=== PATIENT | male | born 1985 | race Caucasian/White ===

== ENCOUNTER → 2017-08-18 | Outpatient (CLI) | payer OTHER ==
--- NOTE | 2017-08-19 07:18 | REP ---
Clinical: Pain with recent trauma to the acromioclavicular joint . Technique: Internal rotation, external rotation, and Y view left shoulder . Findings: No acute fracture or dislocation. The acromioclavicular and glenohumeral joints are intact. No periarticular calcifications or degenerative changes are appreciated. Sub acromial space is normal. Surrounding soft tissues are unremarkable. Impression: Normal , age-appropriate left heart shoulder radiographs. Signed by Ronald Ramírez MD 08/19/2017 07:10 A
== END ==
LOC: M ADAMS 14:01
PROVIDERS: ATTEND Physician Assistant Medical
DX: M25.512 Pain in left shoulder (principal)

== ENCOUNTER → 2019-07-19 | Outpatient (REF) | payer OTHER ==
[2019-07-19 13:19] LABS: HEMATOCRIT 44.6 % (42.0-52.0); HEMOGLOBIN 14.7 g/dl (13.5-17.5); MEAN CORPUSCULAR HEMOGLOBIN 28.9 pg (27.0-33.0); MEAN CORPUSCULAR VOLUME 87.6 fl (80.0-96.0); PLATELET COUNT, AUTOMATED 288 10^3/uL (150-450); RED BLOOD COUNT 5.09 10^6/uL (4.30-6.10); WHITE BLOOD COUNT 7.6 10^3/uL (4.0-10.0)
[2019-07-19 13:58] LABS: ALBUMIN 4.4 GM/DL (3.2-5.2); ALT/SGPT 26 U/L (12-78); BILIRUBIN,TOTAL 0.5 MG/DL (0.2-1.0); BLOOD UREA NITROGEN 13 MG/DL (7-18); CALCIUM LEVEL 9.2 MG/DL (8.5-10.1); CARBON DIOXIDE LEVEL 31 MEQ/L (21-32); CHLORIDE LEVEL 103 MEQ/L (98-107); CREATININE FOR GFR 0.97 MG/DL (0.70-1.30); FREE T4 0.96 NG/DL (0.76-1.46); GLOMERULAR FILTRATION RATE > 60.0 (>60); GLUCOSE, FASTING 78 MG/DL (70-100); POTASSIUM SERUM 4.2 MEQ/L (3.5-5.1); SODIUM LEVEL 136 MEQ/L (136-145); TOTAL PROTEIN 7.6 GM/DL (6.4-8.2)
[2019-07-21 00:06] LABS: Lyme Disease IgG/IgM Antibodie <0.91 ISR (0.00-0.90); Lyme Disease IgM Ab Quantitati <0.80 index (0.00-0.79)
== END ==
LOC: M SFHCADAM 11:10
PROVIDERS: ATTEND Physician Assistant
DX: F17.220 Nicotine dependence, chewing tobacco, uncomplicated (principal); F41.9 Anxiety disorder, unspecified; W57.XXXD Bitten or stung by nonvenomous insect and other nonvenomous arthropods, subsequent encounter

== ENCOUNTER → 2019-08-07 | Outpatient (CLI) | payer OTHER ==
[~2019-08-07] MED LIST: TOPI50TA9 PO
--- NOTE | 2019-08-08 05:37 | REP ---
Clinical: Testicular pain. Technique: Sesay scale and color Doppler evaluation using linear and curved array transducer with color Doppler evaluation. Findings: The testicles and epididymi are relatively normal in contour, size, echogenicity, vascularity and overall appearance. There is no evidence for intratesticular mass lesion, infectious/inflammatory process, with torsion. Incidental right epididymal head cyst measures 7 x 3 x 3 mm and left epididymal head cyst measures 2 x 2 x 1 mm. Few incidental testicular calcifications measure up to approximately 1.4 mm. Right-sided varicoceles measure up to 4.4 mm maximal diameter on Valsalva. No obvious hydrocele. Right testicle measures 5.0 x 1.9 x 3.0 cm. Left testicle measures 5.1 x 1.9 x 3.0 cm. Impression: 1. Early right-sided hydroceles measuring up to 4.4 mm maximal diameter on Valsalva. 2. Otherwise relatively normal examination with few essentially insignificant findings.
== END ==
LOC: M WHC 07:59
PROVIDERS: ATTEND Physician Assistant
DX: N43.3 Hydrocele, unspecified (principal)

== ENCOUNTER → 2019-09-21 | Outpatient (REF) | payer OTHER | LOC: M SFHCADAM 08:52 | PROVIDERS: ATTEND Physician Assistant | DX: Z53.9 Procedure and treatment not carried out, unspecified reason (principal) ==

== ENCOUNTER → 2019-10-11 | Outpatient (CLI) | payer OTHER ==
--- NOTE | 2019-10-11 14:38 | REP ---
ULTRASOUND INGUINAL CANALS: Real-time sonographic evaluation of the inguinal canals is performed at rest and with Valsalva maneuver. There is no evidence of right inguinal hernia. There is a normal appearing 1 cm lymph node along the right iliac vessels. There does appear to be a very small left inguinal hernia which contains mesenteric fat which is reducible. The left inguinal hernia only extends through the internal ring with the defect approximately 5 mm in diameter increasing to about 9 mm with Valsalva maneuver. There is no bowel in the hernia. IMPRESSION: Small reducible left inguinal hernia containing only a small amount of mesenteric fat. Electronically Signed by Marc Sesay MD 10/12/2019 11:23 A
== END ==
LOC: M RAD 12:54
PROVIDERS: ATTEND Surgery
DX: K40.90 Unilateral inguinal hernia, without obstruction or gangrene, not specified as recurrent (principal)

== ENCOUNTER 2019-12-04 09:48 | Day surgery (SDC) | payer OTHER ==
[~2019-12-04] VITALS: Ht 175.3 cm; Wt 86.3 kg
[~2019-12-04 09:48] MED LIST changes: +CLINDAMYCIN 600 MG in IV 1 EA IV ONE; +LR 1,000 ML IV ONE; +MIDAZOLAM INJ 2 MG/2 ML VIAL (J2250) As Ordered ONE; +fentaNYL 250 MCG/5 ML INJECTION (J3010) As Ordered ONE; +propofoL 500 MG/50 ML VIAL As Ordered ONE
[2019-12-04] MEDS ORDERED: BUPIVACAINE/EPIN 0.25% 30 ML VIAL As Ordered ONE (10:47)
[2019-12-04] MEDS ORDERED: KETOROLAC 60 MG/2 ML VIAL (J1885) As Ordered ONE (11:24)
[2019-12-04] MEDS ORDERED: ACETAMINOPHEN 1000MG 100ML IV BTL (OFIRMEV) (J0131 PER 10MG) As Ordered ONE (11:24)
[2019-12-04] MEDS ORDERED: SUGAMMADEX SODIUM 500 MG/5 ML VIAL (BRIDION) As Ordered ONE (11:25)
[2019-12-04] MEDS ORDERED: dexameTHASONE 4 MG/ML 1ML VIAL (J1100) As Ordered ONE (11:25)
[2019-12-04] MEDS ORDERED: ROCURONIUM BROMIDE 50 MG/5 ML VIAL As Ordered ONE (11:25)
[2019-12-04] MEDS ORDERED: LIDOCAINE 2% INJ 100 MG/5 ML SDV (FOR ANES.) As Ordered ONE (11:25)
[2019-12-04] MEDS ORDERED: ONDANSETRON 4MG/2ML VIAL (J2405) As Ordered ONE (11:25)
[2019-12-04] MEDS ORDERED: propofoL 200 MG/20 ML VIAL As Ordered ONE (11:25)
[2019-12-04] MEDS ORDERED: METHOCARBAMOL 1,000 MG/10 ML VIAL (J2800) As Ordered ONE (11:26)
[2019-12-04] MEDS: oxyCODONE 5MG TAB PO PRN ×2 (12:44→13:19)
[2019-12-04] MEDS ORDERED: ONDANSETRON 4MG/2ML VIAL (J2405) IV PRN (12:45)
[2019-12-04] MEDS ORDERED: fentaNYL 100 MCG/2 ML INJECTION (J3010) IV PRN (12:45)
[2019-12-04] MEDS ORDERED: HYDROMORPHONE HCL 0.5 MG/ 0.5 ML SYRINGE (J1170 PER 1) IV PRN (12:45)
[2019-12-04] MEDS ORDERED: LR 1,000 ML IV SCH (12:45)
[2019-12-04] MEDS ORDERED: NORCO, ANEXSIA 5/325MG TABLET (HYDROcodone/ACETAMINOPHEN) PO PRN (12:45)
[2019-12-04 13:55] VITALS: BP 121/57
--- NOTE | 2019-12-05 08:12 | RO ---
DATE OF PROCEDURE: 12/04/2018 PREOPERATIVE DIAGNOSIS: Bilateral inguinal hernias. POSTOPERATIVE DIAGNOSIS: Bilateral inguinal hernias. PROCEDURES: Robotic repair of bilateral inguinal hernias. SURGEON: Marc Leach DO POULTRY HUSBANDRY WORKER: MELLISSA Henderson ANESTHESIA: General. ESTIMATED BLOOD LOSS: 5 mL. COMPLICATIONS: None. INDICATIONS FOR PROCEDURE: The patient is a 34-year-old male who presents with right groin pain and an ultrasound showing a left inguinal hernia. Repeat ultrasound again showed left inguinal hernia. No signs of hernia on the right however, I felt a palpable hernia in the right as well as one my partners. Because of that, plan was to proceed with robotic bilateral inguinal hernia repair. Risks and benefits of procedure, not limited to but including bleeding, infection, hernia formation, hernia recurrence, damage to surrounding structures, need for further surgery were discussed in detail with the patient, informed consent was obtained and the procedure was planned. PROCEDURE: The patient was brought back to operating room 7. After sufficient sedation, the abdomen was sterilely prepped and draped. Next, a time out was done to confirm proper patient and proper procedure. Following that, an 8 mm incision was made in left lower quadrant, Veress needle inserted and the abdomen was insufflated to 15 mmHg. Veress needle was then removed and an 8 mm robotic OptiView port was used to gain access to the abdomen. She had was entered two more robotic ports were placed across the mid abdomen. Next, the abdomen was examined through the robotic console. Starting on the right side, the preperitoneal was entered with a curved incision just above the inguinal canal. Preperitoneal space was dissected free posteriorly and medially all way to the pubic symphysis. There was no obvious protrusion of the peritoneum into the inguinal canal. No hernia sac, but there was a cord lipoma extending from the preperitoneal space down through the inguinal ring. This was dissected free and completely removed. The same process was done on the left side. On the left there also was a cord lipoma and also medial to the cords was a couple of large, what appeared to be swollen, either incarcerated fat versus enlarged lymph nodes. These were dissected free from the inguinal vein and removed. Next, a Bard 3DMax light medium mesh was placed, first into the left preperitoneal space sutured to the pubic symphysis with #2-0 Vicryl suture. The peritoneum was then closed over top of the mesh using a running 32-0 V-Loc of consciousness. The same process was done on the right. Once that was completed, the specimens were placed inside of a 5 mm EndoCatch bag and removed. Once they are removed, all of the needles were removed. The abdomen was then desufflated. Skin incisions were closed #4-0 Vicryl subcuticular sutures. The eye was cleaned and dried, and Steri-Strips, 4x4 and tape were applied thus ending procedure.
== END 2019-12-04 14:00 | disposition home or self-care (01) ==
LOC: M SDC 09:48
PROVIDERS: ATTEND Surgery
DX: K40.20 Bilateral inguinal hernia, without obstruction or gangrene, not specified as recurrent (principal); D17.6 Benign lipomatous neoplasm of spermatic cord; F17.220 Nicotine dependence, chewing tobacco, uncomplicated; Z79.899 Other long term (current) drug therapy; Z88.0 Allergy status to penicillin; Z88.2 Allergy status to sulfonamides
CPT/HCPCS: 49650; 88302; C1781; J0131; J1100; J1885; J2250; J2405; J2800; J3010

== ENCOUNTER 2020-05-14 12:44 | Observation (INO) | payer OTHER ==
[~2020-05-14] VITALS: Ht 175.3 cm; Wt 89.6 kg
[~2020-05-14 12:44] MED LIST changes: -CLINDAMYCIN 600 MG in IV 1 EA IV ONE; -LR 1,000 ML IV ONE; -MIDAZOLAM INJ 2 MG/2 ML VIAL (J2250) As Ordered ONE; -fentaNYL 250 MCG/5 ML INJECTION (J3010) As Ordered ONE; -propofoL 500 MG/50 ML VIAL As Ordered ONE
--- NOTE | 2020-05-14 13:16 | REP ---
Head CT without contrast: History: Left sided facial droop. Comparison study: No comparison CT study. CT findings: Bone window settings demonstrate an intact bony calvarium. There is no evidence of skull fracture or incidental bony calvarial lesion. The visualized paranasal sinuses appear clear. No intraorbital abnormality is seen. On soft tissue window setting images; the lateral, third, and fourth ventricles are normal in size and position. Sesay-white differentiation pattern is normal above and below the tentorium. There are is no evidence of intracranial hemorrhage. No mass, edema, infarction, or midline shift is seen. No extra-axial fluid collection is appreciated. Impression: Negative noncontrast head CT. Electronically Signed by Trav Roldan MD 05/14/2020 01:15 P
[2020-05-14] MEDS ORDERED: ASPIRIN 81 MG CHEW TABLET PO ONE (13:30)
[2020-05-14 13:39] LABS: BASO % 0.5 % (0.0-1.0); EOS % 0.6 % (0.0-3.0); HEMATOCRIT 42.2 % (42.0-52.0); HEMOGLOBIN 14.3 g/dl (13.5-17.5); LYMPH # 1.6 10^3/uL (1.5-5.0); LYMPH % 24.6 % (24.0-44.0); MEAN CORPUSCULAR HEMOGLOBIN 29.5 pg (27.0-33.0); MEAN CORPUSCULAR HGB CONC 33.9 g/dl (32.0-36.5); MEAN CORPUSCULAR VOLUME 87.2 fl (80.0-96.0); MONO # 0.5 10^3/uL (0.0-0.8); MONO % 8.2 % (0.0-5.0); NEUTROPHILS # 4.2 10^3/uL (1.5-8.5); NEUTROPHILS % 65.8 % (36.0-66.0); PLATELET COUNT, AUTOMATED 262 10^3/uL (150-450); RED BLOOD COUNT 4.84 10^6/uL (4.30-6.10); WHITE BLOOD COUNT 6.4 10^3/uL (4.0-10.0)
[2020-05-14] MEDS ORDERED: ISOVUE-370 76% 100ML VIAL As Ordered ONE (13:39)
[2020-05-14 13:53] LABS: INR 0.99; PROTHROMBIN TIME 12.8 SECONDS (11.8-14.0)
[2020-05-14 13:54] LABS: PARTIAL THROMBOPLASTIN TIME 28.4 SECONDS (25.0-38.4)
[2020-05-14 14:07] LABS: CK-MB VALUE MASS 2.6 NG/ML (<3.6); CPK CREATINE PHOSPHOKINASE 540 U/L (39-308); MB/CK RELATIVE INDEX 0.48 (< OR =4); TROPONIN I < 0.02 NG/ML (< 0.10)
--- NOTE | 2020-05-14 14:25 | REP ---
CT angiography of the brain with IV contrast: History: TIA. CT contrast dose: 100 ml of intravenous Isovue 370. CT angiographic findings: The distal vertebral arteries are symmetric in size and patent. Posterior cerebral and superior cerebellar arteries are normal in appearance. The distal internal carotid arteries are unremarkable bilaterally. Anterior and middle cerebral arteries are intact. No vessel cutoff is seen. The dural sinuses are unremarkable. Maximal intensity projection and MPR images show no additional abnormality. Impression: Unremarkable CT angiography of the brain with IV contrast. Electronically Signed by Trav Roldan MD 05/14/2020 02:17 P
[2020-05-14 14:28] LABS: ALBUMIN 4.4 GM/DL (3.2-5.2); ALT/SGPT 26 U/L (12-78); BILIRUBIN,DIRECT 0.2 MG/DL (0.0-0.2); BILIRUBIN,TOTAL 0.4 MG/DL (0.2-1.0); TOTAL PROTEIN 7.7 GM/DL (6.4-8.2)
--- NOTE | 2020-05-14 15:45 | REP ---
CHEST SINGLE VIEW: There is no evidence of acute infiltrate. No pleural effusion is seen. The heart is normal in size. The mediastinal silhouette is unremarkable. The visualized osseous structures are intact. IMPRESSION: No acute pulmonary disease. Electronically Signed by Marc Sesay MD 05/15/2020 04:39 P
--- NOTE | 2020-05-14 16:10 | REP ---
CT ANGIOGRAPHY OF THE CAROTIDS WITH IV CONTRAST: HISTORY: TIA. CT CONTRAST DOSE: 100 mL of intravenous Isovue 370. TECHNIQUE: Helical scanning is acquired. Axial 2 mm slices are reformatted. Coronal and sagittal MPR and MIP images are generated. Surface rendered 3D images are generated and reviewed. CT ANGIOGRAPHIC FINDINGS: The visualized aortic arch is unremarkable. Great vessel origins are widely patent. The right internal jugular vein is larger than the left and is partially reflux with opacified contrast from the right arm injection. Thyroid lobes are normal and symmetric. No evidence of neck mass or adenopathy is seen. Visualized paranasal sinuses are clear. The vertebral arteries are symmetric and codominant. Common carotid arteries are smooth and widely patent. The carotid bifurcations are clear bilaterally. There is no evidence to suggest dissection or atherosclerosis in the internal carotid arteries on either side. IMPRESSION: Normal CT angiography of the carotids and vertebrals. Electronically Signed by Trav Roldan MD 05/14/2020 05:16 P
--- NOTE | 2020-05-14 17:33 | HPEPDOC ---
[facility] Medical History & Physical Date of Admission May 14, 2020 Date of Service: May 14, 2020 Attending Physician: ALY DAWSON MD History and Physical CHIEF COMPLAINT: Left facial numbness HISTORY OF PRESENT ILLNESS: 35-year-old male with no significant past medical history presents with left facial numbness. It happened earlier today, lasted for a few seconds, recurred 10 minutes later and once again resolved on its own within a few seconds. He had no other symptoms, denies any visual changes, facial weakness and weakness/numbness in the extremities. Patient is currently resting comfortably, without any complaints at this time. He was rebecca for the entire day prior to his symptoms, was in the sun, reports drinking some water, but not an excessive amount. 10 point review of system is negative except for above PAST MEDICAL HISTORY: 1. None. PAST SURGICAL HISTORY: 1. Hernia repair. 2. Left shoulder surgery. SOCIAL HISTORY: Smokes one pack per day. Drinks a few beers every day, up to 12-18 on the weekends. Denies drug use FAMILY HISTORY: 2 uncles had stroke in their 40s ALLERGIES: Please see below. HOME MEDICATIONS: Please see below. PHYSICAL EXAMINATION: VITAL SIGNS: Please see below. GENERAL: No distress HEENT: Normocephalic, atraumatic, moist mucous membranes NECK: Supple CARDIOVASCULAR EXAMINATION: S1, S2, no murmurs RESPIRATORY EXAMINATION: Clear to auscultation, no wheezing ABDOMINAL EXAMINATION: Soft, nontender, nondistended, positive bowel sounds EXTREMITIES: Range of motion intact SKIN: No rash NEUROLOGICAL EXAMINATION: Alert and oriented 3, no focal deficits PSYCHIATRIC EXAMINATION: Calm and cooperative LABORATORY DATA: See below. IMAGING: CT head, CTA head and neck negative for acute pathology MICROBIOLOGY: Please see below. ASSESSMENT: 35-year-old smoker with no significant past medical history is being admitted for possible TIA. PLAN: 1. Left facial numbness. Lasting for a few seconds, spent most of the day outside in the heat, likely heatstroke, CT head and CTA head and neck negative for acute pathology, neurology was consulted by emergency department, who recommended admission for observation and completing stroke workup. Patient was also given aspirin 325 mg. MRI brain and echo pending, telemetry monitoring. Vital Signs Vital Signs Date Time Temp Pulse Resp B/P (MAP) Pulse Ox O2 Delivery O2 Flow Rate FiO2 05/14/20 14:15 68 20 136/77 (96) 97 Room Air 05/14/20 12:45 98.5 Laboratory Data Labs 24H Laboratory Tests 2 05/14/20 13:15: Prothrombin Time 12.8, Prothromb Time International Ratio 0.99, Activated Partial Thromboplast Time 28.4, Total Bilirubin 0.4, Direct Bilirubin 0.2, Aspartate Amino Transf (AST/SGOT) 25, Alanine Aminotransferase (ALT/SGPT) 26, Alkaline Phosphatase 83, Total Creatine Kinase 540H, Creatine Kinase MB 2.6, Creatine Kinase MB Relative Index 0.48, Troponin I < 0.02, Total Protein 7.7, Albumin 4.4, Albumin/Globulin Ratio 1.3 05/14/20 13:16: Immature Granulocyte % (Auto) 0.3, Neutrophils (%) (Auto) 65.8, Lymphocytes (%) (Auto) 24.6, Monocytes (%) (Auto) 8.2H, Eosinophils (%) (Auto) 0.6, Basophils (%) (Auto) 0.5, Neutrophils # (Auto) 4.2, Lymphocytes # (Auto) 1.6, Monocytes # (Auto) 0.5, Eosinophils # (Auto) 0.0, Basophils # (Auto) 0.0, Nucleated Red Blood Cells % (auto) 0.0 05/14/20 13:26: POC Prothrombin Time (Misc) 12.0L, POC INR (Misc) 1.0 05/14/20 13:27: POC Glucose (Misc Panel) 93, POC Sodium (Misc Panel) 138, POC Potassium (Misc Panel) 3.9, POC Chloride (Misc Panel) 101, POC Total CO2 (Misc Panel) 24.0, POC Blood Urea Nitrogen (Misc Panel 13, POC Ionized Calcium (Misc Panel) 4.5, POC Creatinine (Misc Panel) 1.2, POC Hematocrit (Misc Panel) 45.0 CBC/BMP Laboratory Tests 05/14/20 13:16 Home Medications No Active Prescriptions or Reported Meds Allergies Coded Allergies: Penicillins (Verified Allergy, Unknown, UNKNOWN- CHILD, 11/16/19) Sulfa (Sulfonamide Antibiotics) (Verified Allergy, Unknown, UNKNOWN- CHILD, 11/16/19) A-FIB/CHADSVASC A-FIB History Current/History of A-Fib/PAF?: No ALY DAWSON MD May 14, 2020 17:33
[2020-05-14 19:15] VITALS: BP 158/86
--- NOTE | 2020-05-14 19:29 | REPVR ---
PROCEDURE INFORMATION: Exam: MR Head Without Contrast Exam date and time: 05/14/2020 6:07 PM Age: 35 years old Clinical indication: Numbness / parasthesia; Left; Patient HX: Current numbness in lt side of face. PT states earlier today for a short period of time his face went numb, as well as drooping on the lt side, and weakness in the lt side of his body; Additional info: TIA TECHNIQUE: Imaging protocol: MR of the head without contrast. COMPARISON: CT Head without contrast 05/14/2020 12:52 PM FINDINGS: Ventricles demonstrate normal size and configuration. Major vascular flow voids at the skull base are preserved. No extra-axial fluid collection. No midline shift or intracranial mass effect. No pathologic white-matter signal or cerebral edema. No diffusion restriction. Visualized paranasal sinuses and mastoid air cells are clear. IMPRESSION: No acute intracranial abnormality. Electronically signed by: Crescencio Rodriguez On 05/14/2020 19:28:49 PM
[2020-05-15 06:00] VITALS: BP 130/80
[2020-05-15 06:19] LABS: HEMOGLOBIN 14.5 g/dl (13.5-17.5); MEAN CORPUSCULAR HEMOGLOBIN 28.7 pg (27.0-33.0); MEAN CORPUSCULAR VOLUME 87.1 fl (80.0-96.0); PLATELET COUNT, AUTOMATED 256 10^3/uL (150-450); RED BLOOD COUNT 5.05 10^6/uL (4.30-6.10); WHITE BLOOD COUNT 6.2 10^3/uL (4.0-10.0)
[2020-05-15 06:46] LABS: ALBUMIN 3.9 GM/DL (3.2-5.2); ALT/SGPT 26 U/L (12-78); BILIRUBIN,TOTAL 0.5 MG/DL (0.2-1.0); BLOOD UREA NITROGEN 12 MG/DL (7-18); CALCIUM LEVEL 8.8 MG/DL (8.5-10.1); CARBON DIOXIDE LEVEL 27 MEQ/L (21-32); CHLORIDE LEVEL 105 MEQ/L (98-107); CREATININE FOR GFR 1.01 MG/DL (0.70-1.30); GLOMERULAR FILTRATION RATE > 60.0 (>60); GLUCOSE, FASTING 94 MG/DL (70-100); MAGNESIUM LEVEL 2.2 MG/DL (1.8-2.4); POTASSIUM SERUM 4.2 MEQ/L (3.5-5.1); SODIUM LEVEL 136 MEQ/L (136-145); TOTAL PROTEIN 6.9 GM/DL (6.4-8.2)
--- NOTE | 2020-05-15 09:34 | ECGEPIP ---
[facility] - ED Test Date: 2020-05-14 Pat Name: BRISA BROWNE Department: Room: - Gender: Male Analysis Analyst: porfirio : 1985 Requested By: LUIS ALBERTO Montgomery Order Number: [id number] Reading MD: Aleksey Cesar Measurements Intervals [place] Rate: 78 P: 23 [place]: 144 QRS: 46 QRSD: 94 T: 32 QT: 361 QTc: 413 Interpretive Statements SINUS RHYTHM POOR R WAVE PROGRESSION NO PRIORS FOR COMPARISON Electronically Signed on 05-15-2020 9:33:45 EDT by Aleksey Cesar
--- NOTE | 2020-05-15 12:46 | DS.PDOC ---
Discharge Summary General Date of Admission May 14, 2020 at 12:45 Date of Discharge 05/15/2020 Attending Physician: ALY DAWSON MD Discharge Summary PROCEDURES PERFORMED DURING STAY: None. ADMITTING DIAGNOSES: 1. TIA. DISCHARGE DIAGNOSES: 1. TIA. COMPLICATIONS/CHIEF COMPLAINT: TIA. HISTORY OF PRESENT ILLNESS: 35-year-old male with no significant past medical history was admitted for TIA and stroke workup. Patient's CAT scan and MRI have been negative for acute stroke. Patient has remained clinically asymptomatic since admission. Patient seen in the morning, comfortable, without any complaints, hemodynamically stable for discharge and outpatient follow-up. HOSPITAL COURSE: As above. DISCHARGE MEDICATIONS: Please see below. ALLERGIES: Please see below. PHYSICAL EXAMINATION: VITAL SIGNS: Please see below. GENERAL: No distress HEENT: Normocephalic, atraumatic, moist mucous membranes NECK: Supple CARDIOVASCULAR EXAMINATION: S1, S2, no murmurs RESPIRATORY EXAMINATION: Clear to auscultation, no wheezing ABDOMINAL EXAMINATION: Soft, nontender, nondistended, positive bowel sounds EXTREMITIES: Range of motion intact SKIN: No rash NEUROLOGICAL EXAMINATION: Alert and oriented 3, no focal deficits PSYCHIATRIC EXAMINATION: Calm and cooperative LABORATORY DATA: Please see below. IMAGING: CT and MRI head negative for acute stroke PROGNOSIS: Good ACTIVITY: As tolerated. DIET: Regular DISCHARGE PLAN: Follow with PCP in 1-2 weeks DISPOSITION: 01 Home, Self-Care. DISCHARGE INSTRUCTIONS: 1. As above. DISCHARGE CONDITION: Stable. TIME SPENT ON DISCHARGE: Greater than 15 minutes. Vital Signs/I&Os Vital Signs Date Time Temp Pulse Resp B/P (MAP) Pulse Ox O2 Delivery O2 Flow Rate FiO2 05/15/20 06:00 97.8 64 18 130/80 (97) 99 05/14/20 17:15 Room Air I&O- Last 24 Hours up to 6 AM 05/15/20 06:00 Intake Total 900 ml Output Total 750 ml Balance 150 ml Laboratory Data Labs 24H Laboratory Tests 2 05/14/20 13:15: Prothrombin Time 12.8, Prothromb Time International Ratio 0.99, Activated Partial Thromboplast Time 28.4, Total Bilirubin 0.4, Direct Bilirubin 0.2, Aspartate Amino Transf (AST/SGOT) 25, Alanine Aminotransferase (ALT/SGPT) 26, Alkaline Phosphatase 83, Total Creatine Kinase 540H, Creatine Kinase MB 2.6, Creatine Kinase MB Relative Index 0.48, Troponin I < 0.02, Total Protein 7.7, Albumin 4.4, Albumin/Globulin Ratio 1.3 05/14/20 13:16: Immature Granulocyte % (Auto) 0.3, Neutrophils (%) (Auto) 65.8, Lymphocytes (%) (Auto) 24.6, Monocytes (%) (Auto) 8.2H, Eosinophils (%) (Auto) 0.6, Basophils (%) (Auto) 0.5, Neutrophils # (Auto) 4.2, Lymphocytes # (Auto) 1.6, Monocytes # (Auto) 0.5, Eosinophils # (Auto) 0.0, Basophils # (Auto) 0.0, Nucleated Red Blood Cells % (auto) 0.0 05/14/20 13:26: POC Prothrombin Time (Misc) 12.0L, POC INR (Misc) 1.0 05/14/20 13:27: POC Glucose (Misc Panel) 93, POC Sodium (Misc Panel) 138, POC Potassium (Misc Panel) 3.9, POC Chloride (Misc Panel) 101, POC Total CO2 (Misc Panel) 24.0, POC Blood Urea Nitrogen (Misc Panel 13, POC Ionized Calcium (Misc Panel) 4.5, POC Creatinine (Misc Panel) 1.2, POC Hematocrit (Misc Panel) 45.0 05/15/20 06:07: Nucleated Red Blood Cells % (auto) 0.0, Anion Gap 4L, Glomerular Filtration Rate > 60.0, Calcium Level 8.8, Magnesium Level 2.2, Total Bilirubin 0.5, Aspartate Amino Transf (AST/SGOT) 21, Alanine Aminotransferase (ALT/SGPT) 26, Alkaline Phosphatase 71, Total Protein 6.9, Albumin 3.9, Albumin/Globulin Ratio 1.3 CBC/BMP Laboratory Tests 05/14/20 13:16 05/15/20 06:07 Discharge Medications No Active Prescriptions or Reported Meds Allergies Coded Allergies: Penicillins (Verified Allergy, Unknown, UNKNOWN- CHILD, 11/16/19) Sulfa (Sulfonamide Antibiotics) (Verified Allergy, Unknown, UNKNOWN- CHILD, 11/16/19) ALY DAWSON MD May 15, 2020 12:46
--- NOTE | 2020-05-15 17:11 | ECHO ---
DATE OF STUDY: 05/15/2020 REFERRING PHYSICIAN: Dr. Puja Goetz INDICATION: Transient cerebral ischemia, unspecified. HEIGHT: 175 cm WEIGHT: 89 kg 2-D MEASUREMENTS: Left ventricle diastole: 6.0 cm Ventricular septum: 1.11 cm Posterior wall: 1.11 cm Aortic root: 3.6 cm Left atrium: 3.5 cm Aortic annulus: 2.6 cm Inferior vena cava: 2.0 cm DOPPLER MEASUREMENTS: No aortic regurgitation. No aortic stenosis. Aortic valve velocity: 112 cm/sec LVOT velocity: 94.7 cm/sec Trace mitral regurgitation. Mitral E velocity: 61.7 cm/sec Mitral A velocity: 49.7 cm/sec Mitral deceleration time: 250 ms Very mild tricuspid regurgitation. Estimated right ventricular systolic pressure 20-25 mmHg assuming a pressure of 5-10 mmHg. Very mild pulmonic regurgitation. Pulmonary artery systolic pressure: 19 mmHg MITRAL ANNULAR TISSUE DOPPLER E prime septal: 10.7 cm/sec E prime lateral: 14.2 cm/sec DESCRIPTION: The rhythm was sinus. Image quality was adequate. No pericardial effusion. This was a 2-D, M-mode, color flow Doppler and pulsed wave Doppler examination and included mitral annular tissue Doppler. CONCLUSIONS: 1. Mild left ventricle dilatation at end diastole. Left ventricle appeared normal in size and systole by visual assessment. Normal regional LV wall motion and wall thickening. Normal LV wall thickness . Normal LV systolic function. Left ventricular ejection fraction (LVEF) 60% by visual estimate. Normal LV diastolic function. 2. Otherwise, normal echocardiogram-Doppler findings.
== END 2020-05-15 12:05 | disposition home or self-care (01) ==
LOC: M ED 12:44 → M ED INP 12:45 → ENRESERV 18:13 → M MSPAV 19:21
PROVIDERS: ADMIT Internal Medicine; ATTEND Internal Medicine
DX: G45.9 Transient cerebral ischemic attack, unspecified (principal); F17.218 Nicotine dependence, cigarettes, with other nicotine-induced disorders; F41.9 Anxiety disorder, unspecified; Z88.0 Allergy status to penicillin; Z88.2 Allergy status to sulfonamides
CPT/HCPCS: 36415; 70450; 70496; 70498; 70551; 71045; 80047; 80053; 80076; 82550; 82553; 83735; 84484; 85025; 85027; 85610; 85730; 86850; 86900; 86901; 93005; 93041; 93306; 94760; 99285; Q9967

== ENCOUNTER → 2022-02-04 | Outpatient (CLI) | payer OTHER | LOC: M RAD 15:43 | PROVIDERS: ATTEND Surgery | DX: K40.20 Bilateral inguinal hernia, without obstruction or gangrene, not specified as recurrent (principal) ==

== ENCOUNTER → 2023-07-15 | Outpatient (CLI) | payer OTHER ==
[~2023-07-15] MED LIST changes: +TOPI-254 PO; -TOPI50TA9 PO
== END ==
LOC: M RAD 06:46
PROVIDERS: ATTEND Surgery
DX: R10.30 Lower abdominal pain, unspecified (principal)

== ENCOUNTER → 2023-08-11 | Outpatient (CLI) | payer OTHER ==
[~2023-08-11] MED LIST changes: +GASTROGRAFIN SOLUTION 30ML As Ordered ONE; +ISOVUE-370 76% 100ML VIAL As Ordered ONE
== END ==
LOC: M RAD 09:50
PROVIDERS: ATTEND Surgery
DX: N50.819 Testicular pain, unspecified (principal)

== ENCOUNTER → 2023-10-26 | Outpatient (CLI) | payer OTHER ==
[~2023-10-26] MED LIST changes: -GASTROGRAFIN SOLUTION 30ML As Ordered ONE; -ISOVUE-370 76% 100ML VIAL As Ordered ONE; +TOPI-21 PO; -TOPI-254 PO
== END ==
LOC: M RAD 09:47
PROVIDERS: ATTEND Family Medicine
DX: R11.0 Nausea (principal); R10.31 Right lower quadrant pain; K82.8 Other specified diseases of gallbladder; N20.0 Calculus of kidney

== ENCOUNTER → 2024-07-28 | Outpatient (REF) | payer OTHER ==
[2024-07-28 17:59] LABS: BASO % 0.4 % (0.0-1.0); EOS % 0.4 % (0.0-3.0); HEMATOCRIT 43.8 % (42.0-52.0); HEMOGLOBIN 14.5 g/dl (13.5-17.5); LYMPH # 2.2 10^3/uL (1.5-5.0); MEAN CORPUSCULAR HEMOGLOBIN 29.1 pg (27.0-33.0); MEAN CORPUSCULAR HGB CONC 33.1 g/dl (32.0-36.5); MEAN CORPUSCULAR VOLUME 87.8 fl (80.0-96.0); MONO # 0.8 10^3/uL (0.0-0.8); MONO % 7.9 % (2.0-8.0); NEUTROPHILS # 6.9 10^3/uL (1.5-8.5); NEUTROPHILS % 68.9 % (36.0-66.0); PLATELET COUNT, AUTOMATED 395 10^3/uL (150-450); RED BLOOD COUNT 4.99 10^6/uL (4.30-6.10)
[2024-07-28 18:20] LABS: ALBUMIN 4.5 G/DL (3.2-5.2); ALKALINE PHOSPHATASE 126 U/L (46-116); ALT/SGPT 19 U/L (7.0-40); AST/SGOT 19 U/L (<34); BILIRUBIN,TOTAL 0.5 MG/DL (0.3-1.2); BLOOD UREA NITROGEN 14 MG/DL (9-23); CALCIUM LEVEL 9.8 MG/DL (8.5-10.1); CARBON DIOXIDE LEVEL 29 MMOL/L (20-31); CHLORIDE LEVEL 103 MMOL/L (98-107); CHOLESTEROL LEVEL 201 MG/DL (<200); CHOLESTEROL RISK RATIO 2.88 (<5); CREATININE FOR GFR 0.87 MG/DL (0.70-1.30); GLOMERULAR FILTRATION RATE > 60.0 (>60); GLUCOSE, FASTING 92 MG/DL (60-100); HDL CHOLESTEROL 69.7 MG/DL (>40); LDL CHOLESTEROL 117.5 MG/DL (<100); NON-HDL-C 131.3 MG/DL; POTASSIUM SERUM 4.5 MMOL/L (3.5-5.1); SODIUM LEVEL 137 MMOL/L (136-145); TOTAL PROTEIN 7.9 G/DL (5.7-8.2); TRIGLYCERIDES LEVEL 69 MG/DL (<150)
== END ==
LOC: M SFHCADAM 12:07
PROVIDERS: ATTEND Physician Assistant
DX: R07.89 Other chest pain (principal); F17.210 Nicotine dependence, cigarettes, uncomplicated; Z86.73 Personal history of transient ischemic attack (TIA), and cerebral infarction without residual deficits; F11.11 Opioid abuse, in remission

== ENCOUNTER → 2025-06-25 | Outpatient (REF) | payer OTHER ==
[2025-06-25 17:59] LABS: APPEARANCE, URINE CLEAR (CLEAR); BACTERIA, URINE AUTO NEGATIVE (NEGATIVE); BILIRUBIN, URINE AUTO NEGATIVE (NEGATIVE); BLOOD, URINE BLOOD 1+ (NEGATIVE); GLUCOSE, URINE (UA) AUTO NEGATIVE (NEGATIVE); KETONE, URINE AUTO NEGATIVE (NEGATIVE); LEUKOCYTE ESTERASE, URINE AUTO NEGATIVE (NEGATIVE); MUCUS, URINE SMALL (NEGATIVE); NITRITE, URINE AUTO NEGATIVE (NEGATIVE); PROTEIN, URINE AUTO NEGATIVE (NEGATIVE); RBC, URINE AUTO 4 /HPF (0-3); SPECIFIC GRAVITY URINE AUTO 1.025 (1.002-1.035); SQUAMOUS EPITHELIAL CELL UR AU 0 /HPF (0-6); UROBILINOGEN, URINE AUTO 0.2 mg/dL (0.0-2.0); WBC, URINE AUTO 0 /HPF (0-3)
== END ==
LOC: M SMT 16:56
PROVIDERS: ATTEND Nurse Practitioner Family
DX: N50.811 Right testicular pain (principal)

== ENCOUNTER → 2025-07-19 | Outpatient (CLI) | payer OTHER | LOC: M RAD 15:15 | PROVIDERS: ATTEND Nurse Practitioner Family | DX: N50.811 Right testicular pain (principal); N50.3 Cyst of epididymis ==

== ENCOUNTER → 2025-07-25 | Outpatient (REF) | payer OTHER ==
[2025-07-25 14:06] LABS: APPEARANCE, URINE CLEAR (CLEAR); BACTERIA, URINE AUTO NEGATIVE (NEGATIVE); BILIRUBIN, URINE AUTO NEGATIVE (NEGATIVE); BLOOD, URINE BLOOD 1+ (NEGATIVE); GLUCOSE, URINE (UA) AUTO NEGATIVE (NEGATIVE); KETONE, URINE AUTO NEGATIVE (NEGATIVE); LEUKOCYTE ESTERASE, URINE AUTO NEGATIVE (NEGATIVE); NITRITE, URINE AUTO NEGATIVE (NEGATIVE); PROTEIN, URINE AUTO NEGATIVE (NEGATIVE); RBC, URINE AUTO 0 /HPF (0-3); SPECIFIC GRAVITY URINE AUTO 1.012 (1.002-1.035); SQUAMOUS EPITHELIAL CELL UR AU 0 /HPF (0-6); UROBILINOGEN, URINE AUTO 0.2 mg/dL (0.0-2.0); WBC, URINE AUTO 0 /HPF (0-3)
== END ==
LOC: M SMT 12:54
PROVIDERS: ATTEND Nurse Practitioner Family
DX: R82.90 Unspecified abnormal findings in urine (principal)